=== PATIENT | female | born 1995 | race African-American/Black ===

== ENCOUNTER 2017-05-25 02:35 | Emergency (ER) | payer SELFPAY ==
[~2017-05-25] VITALS: Ht 165.1 cm; Wt 63.0 kg
[2017-05-25 03:04] VITALS: BP 137/64; PULSE 86; RESP 16; TEMP 98.5; O2SAT 100
== END 2017-05-25 04:55 | disposition left against medical advice (07) ==
LOC: NED 02:35
DX: R10.2 Pelvic and perineal pain (principal); Z53.21 Procedure and treatment not carried out due to patient leaving prior to being seen by health care provider
CPT/HCPCS: 99281